=== PATIENT | male | born 1960 | race Caucasian/White ===

== ENCOUNTER 2018-04-17 15:01 | Emergency (ER) | payer MEDICAID ==
[~2018-04-17] VITALS: Ht 177.8 cm; Wt 90.7 kg
[2018-04-17 16:21] VITALS: BP 149/103
--- NOTE | 2018-04-17 16:21 | NUR ---
PT SELF PRESENTS TO ER BED 15 C/O DEPRESSION, SUICIDAL THOUGHTS SINCE THURSDAY, NO SPECIFIC PLAN UPON ARRIVAL. PT TACHY AND HYPERTENSIVE PATENT LAWYER. PLACED ON MONITOR. AWAITING MD HAN.
[2018-04-17] MEDS ORDERED: ACETAMINOPHEN 325 MG TABLET PO ONE (16:30)
--- NOTE | 2018-04-17 17:10 | NUR ---
OLGA SHIELDS AT BEDSIDE FOR EVAL.
--- NOTE | 2018-04-17 17:25 | NUR ---
SEWING MACHINE REPAIRER AT BEDSIDE FOR BLOOD DRAW.
[2018-04-17 17:28] LABS: BASOPHILS % (AUTO) 0.4 % (0.0-2.0); EOSINOPHILS % (AUTO) 1.4 % (0.0-6.0); HEMATOCRIT 45 % (39-51); HEMOGLOBIN 15.4 g/dL (13.5-17.5); LYMPHOCYTES # (AUTO) 1.4 /CMM (0.8-4.8); MEAN CORPUSCULAR HGB CONC 34 g/dl (31.0-36.0); MEAN CORPUSCULAR VOLUME 88 fL (80-96); MONOCYTES # (AUTO) 0.8 /CMM (0.1-1.30); NEUTROPHILS # (AUTO) 5.2 /CMM (1.8-8.9); NEUTROPHILS % (AUTO) 68.2 % (43.0-81.0); PLATELET COUNT (AUTO) 162 /CMM (150-450); RED BLOOD CELL COUNT(AUTO) 5.07 MIL/uL (4.5-6.0); WHITE BLOOD COUNT (AUTO) 7.6 K/uL (4.3-11.0)
[2018-04-17] MEDS ORDERED: IBUPROFEN 600 MG TABLET PO ONE ×2 (17:30→17:54)
[2018-04-17 18:27] LABS: APPEARANCE,URINE CLEAR (CLEAR); BILIRUBIN,URINE NEGATIVE (NEGATIVE); BLOOD, URINE 1+ Ery/uL (NEGATIVE); COLOR,URINE YELLOW (YELLOW); KETONES,URINE NEGATIVE (NEGATIVE); LEUKOCYTE ESTERASE ,URINE NEGATIVE (NEGATIVE); NITRITE, URINE NEGATIVE (NEGATIVE); PH,URINE 7.5 (5.0-8.0); PROTEIN,URINE NEGATIVE (NEGATIVE); UGLUCOSE NEGATIVE (NEGATIVE); UROBILINOGEN,URINE 0.2 EU/dL (0.2)
[2018-04-17 18:37] LABS: BACTERIA,URINE Rare /HPF (None Seen); SQUAMOUS EPITHELIAL CELL,UR 0-2 /HPF (None Seen); WBC,URINE 0-2 /HPF (0-3)
[2018-04-17 19:00] LABS: CALCIUM, SERUM 9.1 mg/dL (8.5-10.1); CARBON DIOXIDE 27 mmol/L (21-32); CHLORIDE 99 mmol/L (98-107); CREATININE 0.9 mg/dL (0.6-1.3); GLUCOSE 97 mg/dL (74-106); POTASSIUM 4.1 mmol/L (3.5-5.1); SODIUM SERUM 135 mmol/L (136-145); UREA NITROGEN, BLOOD 17 mg/dL (7-18)
[2018-04-17 19:05] LABS: ALANINE AMINOTRANSFERASE 24 U/L (12-78); ALBUMIN 3.9 g/dL (3.4-5.0); ALCOHOL, BLOOD < 3 mg/dL (0-0); ALKALINE PHOSPHATASE 82 U/L (46-116); ASPARTATE AMINOTRANSFERASE 30 U/L (15-37); BILIRUBIN,DIRECT 0.2 mg/dL (0.0-0.2); BILIRUBIN,TOTAL 0.8 mg/dL (0.2-1.0); TOTAL PROTEIN, SERUM 8.3 g/dL (6.4-8.2)
[2018-04-17 19:06] LABS: SALICYLATE 2.5 mg/dL (2.8-20.0)
[2018-04-17 19:07] LABS: ACETAMINOPHEN < 2 ug/ml (10-30)
--- NOTE | 2018-04-17 19:25 | NUR ---
Patient is resting comfortably in bed with eyes closed. Easily aroused. VSS
--- NOTE | 2018-04-17 21:25 | NUR ---
PT ACCEPTED AT [facility] PER SHAMIKA ([facility]) DIRECT ADMIT TO ROOM [id number] [phone] RN REPORT
--- NOTE | 2018-04-17 21:49 | NUR ---
CALLED [facility] FOR BLS TRANSPORT OF THIS PATIENT TO [facility] ETA [id number] TRIP# [id number]
--- NOTE | 2018-04-17 22:05 | NUR ---
CANCELED [facility] TRANSPORT
--- NOTE | 2018-04-17 22:06 | NUR ---
PT SIGNED AMA DOCUMENT
--- NOTE | 2018-04-17 22:22 | NUR ---
PT LEFT AMA. JOANNA, CRISIS GROUP HOME MANAGER & LIZBET SHIELDS BOTH AWARE.
== END 2018-04-17 22:25 | disposition left against medical advice (07) ==
LOC: ER 15:02
DX: R45.851 Suicidal ideations (principal); F25.9 Schizoaffective disorder, unspecified; F31.9 Bipolar disorder, unspecified; F15.10 Other stimulant abuse, uncomplicated; I85.00 Esophageal varices without bleeding; E03.9 Hypothyroidism, unspecified; F11.10 Opioid abuse, uncomplicated; Z86.19 Personal history of other infectious and parasitic diseases; Z96.653 Presence of artificial knee joint, bilateral; Z88.2 Allergy status to sulfonamides; Z88.1 Allergy status to other antibiotic agents
CPT/HCPCS: 36415; 80048-TC; 80076-TC; 80305; 81000-TC; 85025-TC; A4606; G0480; Z7610

== ENCOUNTER 2021-09-02 10:30 | Emergency (ER) | payer MEDICAID, OTHER ==
[~2021-09-02] VITALS: Ht 177.8 cm; Wt 87.1 kg
--- NOTE | 2021-09-02 10:30 | NUR ---
NERIS 80 FROM HOME C/O METH AND COCAINE USED STARTED 4AM. PT IS AAOX4, NOT IN RESPIRATORY DISTRESS, HOOKED TO V/S MONITOR, KEPT RESTED AND COMFORTABLE. WILL CONTINUE TO MONITOR.
--- NOTE | 2021-09-02 10:33 | NUR ---
AT BEDSIDE FOR EVAL.
--- NOTE | 2021-09-02 10:42 | NUR ---
SECURITY AT BEDSIDE FOR WANDING.
--- NOTE | 2021-09-02 10:49 | NUR ---
PT REFUSED BLOOD DRAW. AWARE.
[2021-09-02] MEDS ORDERED: LORAZEPAM INJ 2 MG/ML VIAL IM ONE (11:00)
[2021-09-02] MEDS ORDERED: OLANZAPINE 10 MG VIAL IM ONE (11:00)
--- NOTE | 2021-09-02 11:10 | NUR ---
PT STATED HE WANTS TO BE DISCHARGED. DENIES SI/HI. AWARE.
--- NOTE | 2021-09-02 11:29 | NUR ---
Patient does not wish to proceed with medical care recommended by Dr. Morrow. Patient given information related to possible complications, up to and including , which could occur as a result of leaving the hospital at this time. Patient verbalizes understanding of risks involved due to leaving against medical advice. Patient has signed AMA form.
[2021-09-02 11:33] VITALS: BP 135/74
== END 2021-09-02 12:56 | disposition left against medical advice (07) ==
LOC: ER 10:33
DX: F19.10 Other psychoactive substance abuse, uncomplicated (principal); I10 Essential (primary) hypertension; K21.9 Gastro-esophageal reflux disease without esophagitis; F31.9 Bipolar disorder, unspecified; F20.9 Schizophrenia, unspecified; F17.200 Nicotine dependence, unspecified, uncomplicated; Z87.438 Personal history of other diseases of male genital organs; Z86.19 Personal history of other infectious and parasitic diseases; Z87.19 Personal history of other diseases of the digestive system; Z96.653 Presence of artificial knee joint, bilateral; Z88.8 Allergy status to other drugs, medicaments and biological substances; Z60.2 Problems related to living alone

== ENCOUNTER 2021-12-31 22:32 | Emergency (ER) | payer OTHER ==
[~2021-12-31] VITALS: Ht 177.8 cm; Wt 86.2 kg
[2021-12-31 22:45] VITALS: BP 153/87
[2021-12-31] MEDS ORDERED: CIPR2.5D14 EACHEYE (22:54)
== END 2021-12-31 23:01 | disposition home or self-care (01) ==
LOC: ER 22:35
DX: H10.89 Other conjunctivitis (principal); I10 Essential (primary) hypertension; K21.9 Gastro-esophageal reflux disease without esophagitis; F43.10 Post-traumatic stress disorder, unspecified; N40.0 Benign prostatic hyperplasia without lower urinary tract symptoms; F31.9 Bipolar disorder, unspecified; F17.200 Nicotine dependence, unspecified, uncomplicated; Z98.890 Other specified postprocedural states; Z88.2 Allergy status to sulfonamides; Z88.1 Allergy status to other antibiotic agents; Z60.2 Problems related to living alone